=== PATIENT | male | born 1955 | race Hispanic/Latino ===

== ENCOUNTER 2017-02-04 19:26 | Emergency (ER) | payer OTHER ==
[~2017-02-04] VITALS: Ht 170.2 cm; Wt 77.1 kg
--- NOTE | 2017-02-04 19:47 | ED NEURO DEFICIT/STROKE ---
History of Present Illness General Chief Complaint: General Adult Stated Complaint: FACIAL DROOP Source: patient, family Exam Limitations: no limitations Vital Signs & Intake/Output Vital Signs & Intake/Output Vital Signs Date Time Temp Pulse Resp B/P B/P Pulse O2 O2 Flow FiO2 Mean Ox Delivery Rate 02/04 2136 97.1 89 18 136/81 97 Room Air 02/04 1931 98.6 96 18 161/91 98 Room Air ED Intake and Output 02/05 0000 02/04 1200 Intake Total Output Total Balance Patient 170 lb Weight Weight Reported by Patient Measurement Method Allergies Coded Allergies: No Known Drug Allergies (NKDA 02/04/17) Reconcile Medications Atorvastatin Calcium 10 MG TABLET 1 TAB PO QPM CHOLESTEROL (Reported) Ergocalciferol (Vitamin D2) (Vitamin D2) 50,000 UNIT CAPSULE 1 CAP PO QWED SUPPLEMENT (Reported) Lisinopril 10 MG TABLET 1 TAB PO DAILY BP (Reported) Metformin HCl 1,000 MG TABLET 0.5 TAB PO DAILY DM (Reported) Mineral Oil/Petrolatum,White (Artificial Tears Eye Ointment) 15 %-83 % OINT...G. 1 PEARL TOP TID BELLS PALSY APPLY TO RIGHT LOWER EYELID 3 TIMES DAY Pantoprazole Sodium 40 MG TABLET.DR 1 TAB PO DAILY GI (Reported) Prednisone 20 MG TABLET 3 TAB PO DAILY bells palsy Valacyclovir HCl (Valacyclovir) 1,000 MG TABLET 1 TAB PO TID bells palsy Triage Note: PT TO ED C/O RT SIDE FACIAL DROOP SINCE 1800. "I WAS DRINKING WATER AND IT WAS RUNNING OUT THE SIDE OF MY MOUTH. PMH OF NIDDM. FINGER STICK 275. NO ARM DRIFT. SPEACH CLEAR. ABLE TO RAISE LEFT EYE BROW. NOT ABLE TO RAISE RT EYE BROW. AMBULATING WITHOUT DIFFICULTY Triage Nurses Notes Reviewed? yes HPI: Patient is a 61-year-old male presents for evaluation of right-sided facial droop. Patient was eating at approximately 5:15 PM when he felt an abnormal sensation to the right side of the his mouth. At 6 PM patient was drinking water when it started to dribble out of his mouth. Patient's noticed facial asymmetry and brought him to the hospital for further evaluation. Pain is 0 out of 10. Patient denies change in vision, numbness to his extremities, weakness to his extremities, recent falls, headache. (HEILLELA REBOLLEDO) Past History Travel History Traveled to [place] past 21 day No Medical History Any Pertinent Medical History? see below for history Cardiovascular: hypertension, hyperlipidemia Gastrointestinal: HEP C Endocrine: diabetes Surgical History Surgical History: non-contributory Psychosocial History What is your primary language Mosotho Tobacco Use: Never used ETOH Use: denies use Illicit Drug Use: denies illicit drug use Family History Hx Contributory? No (LELA RUSHING) Review of Systems Review of Systems Constitutional: Denies: chills, fever. EENTM: Denies: blurred vision, visual changes, eye pain. Respiratory: Denies: cough, short of breath. Cardiovascular: Denies: chest pain, palpitations, syncope. GI: Denies: abdominal pain, nausea, vomiting. Genitourinary: Reports: no symptoms. Musculoskeletal: Denies: back pain, neck pain. Skin: Reports: no symptoms. Neurological/Psychological: Reports: see HPI. Hematologic/Endocrine: Denies: bruising, bleeding. Immunologic/Allergic: Denies: splenectomy. (LELA RUSHING) Physical Exam Physical Exam General Appearance: well developed/nourished, alert, awake Head: atraumatic, paresis right side of mouth. Right eyelid closes slower than left eyelid. Right upper eyelid does not close completely. Eyebrows raise symmetrically Eyes: Bilateral: PERRL, EOMI. Ears, Nose, Throat: moist mucous membrane, hearing grossly normal, Tympanic normal, pharynx normal Neck: normal inspection, supple, full range of motion, no midline tenderness Respiratory: normal breath sounds, chest non-tender, no respiratory distress, lungs clear Cardiovascular: regular rate/rhythm Gastrointestinal: soft, non-tender Back: normal inspection, normal range of motion Extremities: normal range of motion Psychiatric: awake, alert, oriented x 3 Cranial Nerves: normal hearing, normal speech, PERRL Coordination/Gait: normal finger to nose, normal gait Motor/Sensory: no motor/sensory deficits Skin: intact, normal color, warm/dry Core Measures CVA/TIA Diagnosis: No Severe Sepsis Present: No Septic Shock Present: No (LELA RUSHING) Progress Differential Diagnosis: Cancino's Palsy, drug intoxication, electrolyte imbalance, encephalitis, hypoglycemia, intracranial Hem., intracranial mass/tumor, meningitis, migraine LEZAMA, seizure disorder, stroke, subarachnoid Hem., vertebrobasilar insuff. Plan of Care: Orders Procedure Date/time Status Add-on Test (ER Only) 02/04 1959 Active EKG 02/04 1955 Active Telemetry/[employer] Operator 02/04 1954 Active FingerStick- Glucose 02/04 1954 Active TROPONIN LEVEL 02/04 1954 Complete PARTIAL THROMBOPLASTIN TIME 02/04 1954 Complete PROTHROMBIN TIME 02/04 1954 Complete LYME TITRE 02/04 1954 Complete COMPREHENSIVE METABOLIC PANEL 02/04 1954 Complete CBC WITHOUT DIFFERENTIAL 02/04 1954 Complete Laboratory Tests 02/04/172026: Anion Gap 12, Estimated GFR > 60, BUN/Creatinine Ratio 15.6, Glucose 245 H, Calcium 9.0, Total Bilirubin 2.3 H, AST 85 H, ALT 114 H, Alkaline Phosphatase 171 H, Troponin I < 0.01, Total Protein 7.9, Albumin 3.7, Globulin 4.2, Albumin /Globulin Ratio 0.9 L, PT 14.5 H, INR 1.39 H, APTT 32, CBC w Diff NO MAN DIFF REQ, RBC 3.91 L, MCV 94.9 H, MCH 32.9 H, RDW 14.1, MPV 9.0, Gran % 65.4, Lymphocytes % 22.6, Monocytes % 10.4 H, Eosinophils % 1.2, Basophils % 0.4, Absolute Granulocytes 2.2, Absolute Lymphocytes 0.8 L, Absolute Monocytes 0.3, Absolute Eosinophils 0, Absolute Basophils 0, PUBS MCHC 34.7, Lyme Disease Antibody 0.26 Stroke alert called at 1950 1999: Discussed with Dr. Salvador: patient does not meet criteria for tPA based on just the facial paresis. Possible Cancino's palsy. Order lyme titer. If appears to be Cancino's palsy and patient appears stable for discharge then place on antiviral, consider steroids(with caution given his hx of diabetes), and can follow up closely in the office. If patient gets admitted then medicine can contact him for consult. 2006: Discussed with Dr. Martinez. Patient evaluated by Dr. Martinez 02/04/2017 8:48:44 PM: Patient reevaluated. No change in neurologic exam. Results of CT scan discussed with patient. 2154: Results discussed with patient. Diagnosis of [place] palsy vs stroke discussed with patient. Suspect Cancino's palsy given his difficulty closing his right eyelid fully and his entire clinical exam. Offerred patient admission vs close outpatient follow up. Patient comfortable with discharge with close outpatient follow-up. Patient also instructed to check his blood sugars closely , return to the emergency department if blood sugar is consistently going about 300. Also instructed to return immediately if any change in his neurologic status. (LELA RUSHING) Diagnostic Imaging: Viewed by Me: CT Scan. Discussed w/RAD: CT Scan. Initial ED EKG: normal axis, normal intervals, normal p-waves, normal QRS complex, normal sinus rhythm, no ST T wave changes Rhythm Strip: normal sinus rhythm (LELA RUSHING) Departure Departure Time of Disposition: 2200 Disposition: HOME OR SELF CARE Condition: Stable Clinical Impression Primary Impression: Cancino's palsy Referrals: MALLORY JALLOH,ANUPAMA CASTELLANOS APRN (PCP/Family) Additional Instructions: Follow-up with your primary care provider and with Dr. Salvador (neurologist) this week for further evaluation. Call in the morning for appointment. Monitor your blood sugars very closely as prednisone can cause them to become elevated. If your blood sugars are going above 300 then he should return to the emergency department for further evaluation. Also return immediately if you develop any numbness or weakness in her extremities, difficulty speaking, blurred vision, or worsening of symptoms. Departure Forms: Customer Survey General Discharge Information Prescriptions: Current Visit Scripts Valacyclovir HCl (Valacyclovir) 1 TAB PO TID #21 TAB Prednisone 3 TAB PO DAILY #12 TAB Mineral Oil/Petrolatum,White (Artificial Tears Eye Ointment) 1 PEARL TOP TID #1 TUBE APPLY TO RIGHT LOWER EYELID 3 TIMES DAY (LELA RUSHING) PA/IMPLEMENTATION PROJECT MANAGER Co-Sign Statement Statement: ED Attending supervision documentation- [x] I saw and evaluated the patient. I have also reviewed all the pertinent lab results and diagnostic results. I agree with the findings and the plan of care as documented in the PA's/IMPLEMENTATION PROJECT MANAGER's documentation. [] I have reviewed the ED Record and agree with the PA's/IMPLEMENTATION PROJECT MANAGER's documentation. [] Additions or exceptions (if any) to the PAs/IMPLEMENTATION PROJECT MANAGER's note and plan are summarized below: [] (PORTER JALLOH,REG Lyons)
[2017-02-04] MEDS ORDERED: VITAMIN D250000 UNIT PO (20:19)
[2017-02-04] MEDS ORDERED: METFORMIN HCL1000 M1 PO (20:19)
[2017-02-04] MEDS ORDERED: PANTOPRAZOLE SO40 M1 PO (20:19)
[2017-02-04] MEDS ORDERED: LISINOPRIL10 M1 PO (20:19)
[2017-02-04] MEDS ORDERED: ATORVASTATIN CA10 M1 PO (20:20)
--- NOTE | 2017-02-04 20:35 | CT SCAN REPORT ---
EXAMINATION: CT HEAD WITHOUT CONTRAST CLINICAL INFORMATION: Question Cancino's palsy versus cerebrovascular accident. Right-sided facial droop. COMPARISON: No relevant prior imaging available. TECHNIQUE: Contiguous axial imaging was performed from the skull base to vertex without intravenous administration of contrast. DLP: 600.71 mGy-cm FINDINGS: There is no acute intracranial hemorrhage or abnormal extra axial collection. No intracranial mass effect or midline shift. Lateral and third ventricles are normal. No hydrocephalus. Godwin-white matter differentiation is preserved and there is no evidence of acute territorial infarct. The calvarium and skull base are intact. Mastoid air cells and middle ear cavities are well aerated. Visualized paranasal sinuses are well-aerated. IMPRESSION: Unremarkable CT scan of the head. No evidence of acute territorial infarct or hemorrhage. This critical result was discussed with Nathanael Martinez at 02/04/2017 8:29 PM and it was ascertained that the content and urgency of the report was understood at the time of direct communication.
[2017-02-04 20:46] LABS: ABSOLUTE BASOPHIL COUNT 0 /CUMM (0.0-0.2); ABSOLUTE EOSINOPHIL COUNT 0 /CUMM (0.0-0.7); ABSOLUTE GRANULOCYTE CT 2.2 /CUMM (1.4-6.5); ABSOLUTE LYMPH COUNT 0.8 /CUMM (1.2-3.4); ABSOLUTE MONOCYTE COUNT 0.3 /CUMM (0.10-0.60); BASOPHIL % 0.4 % (0.0-2.0); EOSINOPHIL % 1.2 % (0-5); GRANULOCYTE % 65.4 % (42.2-75.2); HEMATOCRIT 37.1 % (42-52); MEAN CORPUSCULAR HGB 32.9 PG (27.0-31.0); MEAN CORPUSCULAR HGB CONC 34.7 G/DL (33.0-37.0); MEAN CORPUSCULAR VOLUME 94.9 FL (80.0-94.0); RBC DISTRIBUTION WIDTH 14.1 % (11.5-14.5); RED BLOOD CELL CT 3.91 /CUMM (4.70-6.10); WHITE BLOOD CELL COUNT 3.4 /CUMM (4.8-10.8)
[2017-02-04 20:47] LABS: PLATELET COUNT 72 /CUMM (130-400)
[2017-02-04 20:51] LABS: PT 14.5 SEC (9.4-12.5); PTT 32 SEC (25-37)
[2017-02-04 21:36] VITALS: BP 136/81
[2017-02-04] MEDS ORDERED: ARTIFICIAL TEA3.5 G1 TOP (22:04)
[2017-02-04] MEDS ORDERED: PREDNISONE20 M1 PO (22:04)
[2017-02-04] MEDS ORDERED: VALACYCLOVIR1000 MG PO (22:04)
== END 2017-02-04 22:32 ==
LOC: ERH 19:26
PROVIDERS: Physician Assistant
DX: G51.0 Bell's palsy (principal)
CPT/HCPCS: 86618; 93005; 93010